=== PATIENT | male | born 1950 | race Caucasian/White ===

== ENCOUNTER 2018-11-12 11:14 | Emergency (ER) | payer OTHER ==
[~2018-11-12] VITALS: Ht 188 cm; Wt 93.0 kg
[2018-11-12] MEDS ORDERED: CENTRUM SILVER1 EAC4 PO (11:28)
[2018-11-12] MEDS ORDERED: ALEVE220 MG PO (11:29)
[2018-11-12] MEDS ORDERED: NAPROSYN500 MG PO (11:29)
[2018-11-12] MEDS ORDERED: PROTONIX 20 MG20 M1 PO (11:29)
[2018-11-12] MEDS ORDERED: ROBAXIN500 MG PO (12:24)
[2018-11-12 12:31] VITALS: BP 145/79
== END 2018-11-12 12:32 | disposition home or self-care (01) ==
LOC: M.ERS 11:14
DX: S16.1XXA Strain of muscle, fascia and tendon at neck level, initial encounter (principal); V49.40XA Driver injured in collision with unspecified motor vehicles in traffic accident, initial encounter; Y93.89 Activity, other specified; Y92.89 Other specified places as the place of occurrence of the external cause; Y99.8 Other external cause status

== ENCOUNTER → 2020-06-06 | Outpatient (CLI) | payer OTHER ==
[~2020-06-06] MED LIST: ALEVE220 MG PO; CENTRUM SILVER1 EAC4 PO; NAPROSYN500 MG PO; PROTONIX 20 MG20 M1 PO; ROBAXIN500 MG PO
== END ==
LOC: M.LAB 08:24
PROVIDERS: ATTEND Orthopaedic Surgery
DX: Z01.812 Encounter for preprocedural laboratory examination (principal); Z20.828 Contact with and (suspected) exposure to other viral communicable diseases

== ENCOUNTER → 2020-08-01 | Outpatient (CLI) | payer OTHER | LOC: M.LAB 08:08 | PROVIDERS: ATTEND Orthopaedic Surgery | DX: Z01.812 Encounter for preprocedural laboratory examination (principal); Z20.828 Contact with and (suspected) exposure to other viral communicable diseases ==